=== PATIENT | male | born 1960 | race Caucasian/White ===

== ENCOUNTER 2023-07-04 08:47 | Day surgery (SDC) | payer MEDICARE ==
[~2023-07-04] VITALS: Ht 172.7 cm; Wt 103.9 kg
[~2023-07-04 08:47] MED LIST: AMLO1TAB24 PO; ATOR80TA59 PO; ECOT81TA5 PO; EZET10TA21 PO; ISOS1TAB36 PO; METO50TA7 PO; NITR0.4S14 SL; OMEP40CA5 PO; TAMS1CAP17 PO; XARE20TA PO
[2023-07-04] MEDS ORDERED: MIDAZOLAM INJ 2MG/2ML VIAL As Ordered ONE (10:34)
[2023-07-04] MEDS ORDERED: LIDOCAINE 2% 100MG/5ML SDV (FOR ANES.) As Ordered ONE (10:34)
[2023-07-04] MEDS ORDERED: propofoL 200 MG/20 ML VIAL As Ordered ONE (10:34)
[2023-07-04] MEDS ORDERED: ONDANSETRON 4MG 2ML VIAL As Ordered ONE (10:34)
[2023-07-04] MEDS ORDERED: fentaNYL 100 MCG/2 ML INJECTION As Ordered ONE (10:34)
[2023-07-04] MEDS ORDERED: LR 1,000 ML IV SCH ×2 (10:45→12:45)
[2023-07-04] MEDS: ceFAZolin SOD 2 GM in IV 1 EA IV ONE (10:55)
[2023-07-04] MEDS ORDERED: PHENYLephrine 500MCG 5ML (100MCG/ML) SYRINGE As Ordered ONE (11:06)
[2023-07-04] MEDS ORDERED: ACETAMINOPHEN 1000MG 100ML IV BAG As Ordered ONE (11:11)
[2023-07-04] MEDS: ISOVUE-300 61% 50ML VIAL XX ONE (11:31)
[2023-07-04] MEDS ORDERED: ePHEDrine SULFATE 25 MG/5 ML(5MG/ML) SYRINGE As Ordered ONE (11:33)
[2023-07-04] MEDS ORDERED: SEVOFLURANE INHAL SOLN 250 ML BTL As Ordered ONE (12:13)
[2023-07-04] MEDS ORDERED: ONDANSETRON 4MG 2ML VIAL IV PRN (12:45)
[2023-07-04] MEDS ORDERED: oxyCODONE 5MG TAB PO PRN (12:45)
[2023-07-04] MEDS ORDERED: fentaNYL 100 MCG/2 ML INJECTION IV PRN (12:45)
[2023-07-04] MEDS ORDERED: HYDROMORPHONE HCL 0.5 MG/ 0.5 ML SYRINGE IV PRN (12:45)
[2023-07-04] MEDS ORDERED: METOPROLOL 5 MG/5 ML VIAL IV STA (13:22)
[2023-07-04] MEDS ORDERED: PERCOCET 5MG/325MG TAB PO PRN (14:05)
[2023-07-04 15:04] VITALS: BP 141/80; TEMP 96.4; O2SAT 96
[2023-07-04] MEDS: oxyBUTYnin 5 MG TAB PO STA (15:25)
[2023-07-04] MEDS ORDERED: OXYB5TAB14 PO (16:06)
[2023-07-13 08:12] LABS: CA Oxalate Dihy 20 % (.); Ca Ox Monohydrate 80 % (.); Size 4x4 mm (.)
== END 2023-07-04 16:13 | disposition home or self-care (01) ==
LOC: M SDC 08:47
PROVIDERS: ATTEND Urology
DX: N20.2 Calculus of kidney with calculus of ureter (principal); I48.91 Unspecified atrial fibrillation; I25.2 Old myocardial infarction; I20.9 Angina pectoris, unspecified; Z95.5 Presence of coronary angioplasty implant and graft; Z88.8 Allergy status to other drugs, medicaments and biological substances; Z91.041 Radiographic dye allergy status; Z79.899 Other long term (current) drug therapy; Z79.01 Long term (current) use of anticoagulants
CPT/HCPCS: 52356; 76000; 82365; C1769; C1894; C2617; J0131; J0690; J1100; J2250; J2371; J2405; J3010; Q9967